=== PATIENT | female | born 1935 | race Caucasian/White ===

== ENCOUNTER → 2016-08-17 | Outpatient (CLI) | payer OTHER, MEDICARE ==
[~2016-08-17] MED LIST: ATOR10TA82 PO; CALC-354 PO; FIBEPOW PO; MULT-506 PO; OMEG10007 PO; SENNTAB23 PO
[2016-08-17 13:49] LABS: CHOLESTEROL/HDL RATIO 2.6; THYROID STIMULATING HORMONE 2.13 uIu/ml (0.300-4.500)
== END | disposition home or self-care (01) ==
LOC: C.LABMFLN 08:33
PROVIDERS: ATTEND Family Medicine
DX: E78.5 Hyperlipidemia, unspecified (principal)

== ENCOUNTER → 2017-03-27 | Outpatient (CLI) | payer OTHER, MEDICARE ==
--- NOTE | 2017-03-27 15:20 | MAMMOGRAPHY REPORT ---
BILATERAL DIGITAL SCREENING MAMMOGRAM WITH CAD: 03/27/2017 CLINICAL HISTORY: Routine screening examination. TECHNIQUE: Bilateral CC, MLO and repeat right CC views were obtained. Current study was also evaluat ed with a Computer Aided Detection (CAD) system. COMPARISON: Comparison is made to exams dated: 03/21/2016 mammogram, 03/16/2015 mammogram, 4 mammogram, 06/28/2012 mammogram, 11/23/2011 mammogram, and 11/17/2011 mammogram - [facility]. BREAST COMPOSITION: The tissue of both breasts is heterogeneously dense, which may obscure small mas ses. FINDINGS: There is a 6 mm nodular asymmetry in the far posterior right breast, along the posterior n ipple line on the MLO view, not definitely seen on the CC view. Although this could represent normal overlapping fibroglandular tissue, additional spot compression tomosynthesis views and possible ultr asound are recommended. There are scattered benign rim calcifications in the breasts. Stable asymmetry in the middle one thi rd of the left breast. No other suspicious mass, architectural distortion or cluster of microcalcifications is seen. IMPRESSION: ACR BI-RADS CATEGORY 0: INCOMPLETE EVALUATION: NEED ADDITIONAL IMAGING EVALUATION The 6 mm nodular asymmetry in the posterior right breast needs additional evaluation. The patient will be called to schedule an appointment. Approximately 10% of breast cancers are not detected with mammography. A negative mammographic report should not delay biopsy if a clinically suggestive mass is present. Amie Carpenter M.D. ay/:03/27/2017 13:53:28 Window Unit Air Conditioning Mechanic: Angela COYLE(R)(M), [facility] letter sent: Addl Imaging 0 BI-RADS Code: ACR BI-RADS Category 0: Incomplete Evaluation: Need Additional Imaging Evaluation
== END | disposition home or self-care (01) ==
LOC: C.MAMM 09:56
PROVIDERS: ATTEND Obstetrics & Gynecology
DX: Z12.31 Encounter for screening mammogram for malignant neoplasm of breast (principal); N64.89 Other specified disorders of breast

== ENCOUNTER → 2017-04-12 | Outpatient (CLI) | payer OTHER, MEDICARE ==
--- NOTE | 2017-04-12 14:12 | MAMMOGRAPHY REPORT ---
UNILATERAL RIGHT DIGITAL DIAGNOSTIC MAMMOGRAM TOMOSYNTHESIS AND TARGETED RIGHT ULTRASOUND: 04/12/2017 CLINICAL HISTORY: Callback from screening mammogram for right breast asymmetry. TECHNIQUE: Breast tomosynthesis in addition to standard 2D mammography was performed. Spot compress ion right CC and MLO 2-D and tomosynthesis images were obtained. COMPARISON: Comparison is made to exams dated: 03/27/2017 mammogram, 03/21/2016 mammogram, 03/16/2015 mammogram, 03/10/2014 mammogram, 11/17/2011 mammogram, and 11/16/2010 mammogram - [facility]. BREAST COMPOSITION: The tissue of the right breast is heterogeneously dense, which may obscure small masses. FINDINGS: The previous described nodular asymmetries seen within the right superior posterior breast on the MLO view only effaces to a baseline appearance on the additional spot compression views, with appearance of this region similar to multiple prior exams including the 2012 exam. No suspicious ma ss, architectural distortion, or other suspicious finding is seen in this region on the additional to mosynthesis images. A few nodular asymmetries are seen within the right medial breast on the additio nal CC images, which appear stable compared to multiple prior exams including the 2012 exam. Targeted ultrasound was performed of the right slightly superior posterior breast in the region of th e mammographic asymmetry. Sonographically normal tissue is seen in this region, without evidence of a mass or other suspicious sonographic abnormality. IMPRESSION: ACR BI-RADS CATEGORY 2: BENIGN, TARGETED ULTRASOUND ACR BI-RADS CATEGORY 2: BENIGN The right breast asymmetry effaces to a baseline appearance on the additional views, without correspo nding suspicious sonographic abnormality evident. Findings are benign and compatible with normal fib roglandular tissue. There is no mammographic or targeted sonographic evidence of malignancy. A 1 yea r screening mammogram is recommended. The patient has been verbally notified of the results. Approximately 10% of breast cancers are not detected with mammography. A negative mammographic report should not delay biopsy if a clinically suggestive mass is present. Deysi Fiore M.D. /:04/12/2017 12:30:03 Playback Operator: Isabel COYLE(R)(M), [facility] letter sent: Normal 1/2 BI-RADS Code: ACR BI-RADS Category 2: Benign Ultrasound BI-RADS: ACR BI-RADS Category 2: Benign
== END | disposition home or self-care (01) ==
LOC: C.MAMM 11:56
PROVIDERS: ATTEND Obstetrics & Gynecology
DX: N64.89 Other specified disorders of breast (principal)